=== PATIENT | male | born 1990 | race Caucasian/White ===

== ENCOUNTER 2017-08-29 01:00 | Emergency (ER) | payer SELFPAY ==
[~2017-08-29] VITALS: Ht 177.8 cm; Wt 2.0 kg
--- NOTE | 2017-08-29 02:34 | PD ---
HPI Chief Complaint: ENT Complaint Time Seen by Provider: 02:11 Travel History International Travel<30 days: No Contact w/Intl Traveler<30days: No Traveled to known affect area: No History of Present Illness HPI Patient is a 27 year old male presented to the emergency department for evaluation of right ear pressure. Patient states it feels like it is popping when he yawns. He reports decreased hearing. He denies any fevers, headaches, congestion. He has no other complaints at this time. Symptom onset was gradual , there are no alleviating factors. There are no exacerbating factors. FORMERLY [facility], [facility] Past Medical History Medical History: Denies Significant Hx Social History Alcohol Use: Yes (OCC) Tobacco Use: No Substance Use: Yes (marijuana) Allergies-Medications (Allergen,Severity, Reaction): Coded Allergies: No Known Allergies (Unverified Adverse Reaction, Unknown, 08/29/17) Reported Meds & Prescriptions Reported Meds & Active Scripts Active No Active Prescriptions or Reported Medications Review of Systems Except as stated in HPI: all other systems reviewed are Neg HENT: Positive: Earache Physical Exam Narrative GENERAL: Well developed, well-nourished, alert male. Presenting in no acute distress. EARS: Bilateral pinnae and left external canals appear within normal limits. Left tympanic membranes without erythema, dullness or perforation. Right ear canal with moderate cerumen impaction. No erythema noted. SKIN: Warm and dry. HEAD: Normocephalic. EYES: No scleral icterus. No injection or drainage. NECK: Supple, trachea midline. No JVD or lymphadenopathy. CARDIOVASCULAR: Regular rate and rhythm without murmurs, gallops, or rubs. RESPIRATORY: Breath sounds equal bilaterally. No accessory muscle use. GASTROINTESTINAL: Abdomen soft, non-tender, nondistended. MUSCULOSKELETAL: No cyanosis, or edema. BACK: Nontender without obvious deformity. No CVA tenderness. Data Data Last Documented VS Vital Signs Date Time Temp Pulse Resp B/P (MAP) Pulse Ox O2 Delivery O2 Flow Rate FiO2 08/29/17 02:43 98.5 80 16 128/84 (99) 98 Room Air MDM Medical Decision Making Medical Screen Exam Complete: Yes Emergency Medical Condition: No Interpretation(s) Vital Signs Date Time Temp Pulse Resp B/P (MAP) Pulse Ox O2 Delivery O2 Flow Rate FiO2 08/29/17 02:43 98.5 80 16 128/84 (99) 98 Room Air Differential Diagnosis Otitis media versus otitis externa versus effusion versus rupture versus other Narrative Course Patient's 27-year-old male that presented to the emergency evaluation of right ear pressure. Exam is consistent moderate cerumen impaction. Patient was encouraged to get [id number] Debrox use as directed. He was encouraged follow-up with primary care or urgent care or ENT for ear irrigation. A medical screening exam was performed: At the time of evaluation the presenting medical condition was determined not to be of an emergent nature. The patient was given the option of receiving additional care, but declined. Patient was given options for additional community resources from which to obtain care. The Patient Has Been advised to seek medical attention for their presenting complaint. The patient has been advised to return to the ER at any time if an emergent condition develops. Diagnosis Primary Impression: Encounter for medical screening examination Scripts No Active Prescriptions or Reported Meds Condition: Romelia Her Aug 29, 2017 02:34
[2017-08-29 02:40] VITALS: BP 128/84; PULSE 80; RESP 16; TEMP 98.5; O2SAT 98
[2017-08-29 02:43] VITALS: BP 128/84; PULSE 80; RESP 16; TEMP 98.5; O2SAT 98
== END 2017-08-29 08:15 | disposition left against medical advice (07) ==
LOC: NEPD 01:00
DX: H91.91 Unspecified hearing loss, right ear (principal)
CPT/HCPCS: 99281